=== PATIENT | male | born 1935 | race Caucasian/White ===

== ENCOUNTER 2018-12-26 09:19 | Day surgery (SDC) ==
[2018-12-26] MEDS: TETRACAINE 0.5% UNIT-DOSE OP PRN ×2 (10:20→11:32)
[2018-12-26] MEDS: BETADINE OPTH PREP OP PRN ×2 (10:21→11:33)
[2018-12-26] MEDS: CYCLOGYL 2% OPTH OP PRN ×3 (10:22→10:32)
[2018-12-26] MEDS ORDERED: LIDOCAINE 1%/PHENYLEPHRINE 1.5% BSS (SURGERY) INTRAOCULA ONE (11:11)
[2018-12-26] MEDS ORDERED: ZOFRAN 4 MG/2 ML IVP ONE (11:11)
[2018-12-26] MEDS ORDERED: DEX-MOXI-KETOR OPTH INJ 1/0.5/0.4 MG/ML IO ONE (11:11)
[2018-12-26] MEDS ORDERED: BSS WITH EPINEPHRINE OP ONE (11:11)
[2018-12-26] MEDS ORDERED: SUBLIMAZE ONE (11:21)
[2018-12-26] MEDS ORDERED: ZOFRAN 4 MG/2 ML ONE (11:21)
[2018-12-26] MEDS ORDERED: VERSED ONE (11:21)
[2018-12-28 06:38] VITALS: TEMP 98.6
[2018-12-28 15:59] VITALS: BP 125/56
== END 2018-12-26 12:30 | disposition home or self-care (01) ==
LOC: SURG 09:19
PROVIDERS: ATTEND Ophthalmology
DX: H25.812 Combined forms of age-related cataract, left eye (principal)